=== PATIENT | male | born 1960 | race Caucasian/White ===

== ENCOUNTER 2024-10-03 18:39 | Emergency (ER) | payer OTHER ==
[~2024-10-03] VITALS: Ht 188 cm; Wt 136.4 kg
--- NOTE | 2024-10-03 20:35 | RADIOLOGY REPORT ---
EXAM: CT CT HEAD INDICATION: head pain/injury TECHNIQUE: CT of the head without intravenous contrast. Radiation Dose Information: CT Dose: CTDI volume is 65.79 mGy. Dose-length product is 1142.08 mGy*cm The dose indicators for CT are the volume Computed Tomography (CT) Dose Index (CTDIvol) and the Dose Length Product (DLP), and are measured in units of mGy and mGy-cm, respectively. These indicators are not patient dose, but values generated from the CT scanner acquisition factors. The report includes radiation exposure data for exposures received during this examination. COMPARISON: None FINDINGS: Evaluation is degraded by motion artifact. No acute territorial infarct, intracranial hemorrhage, or mass effect. There are global involutional changes with compensatory prominence of the ventricles and sulci. Patchy periventricular and subcorti robert white matter hypoattenuation is nonspecific but may be related to small vessel ischemic disease. The orbits are normal. The paranasal sinuses and mastoid air cells are clear. The osseous structures are unremarkable. IMPRESSION: 1. No acute territorial infarct, intracranial hemorrhage, or mass effect. 2. Age-related involutional changes. Chronic microvascular changes.
--- NOTE | 2024-10-03 20:51 | RADIOLOGY REPORT ---
EXAM: CT CT CERVICAL SPINE INDICATION: neck pain EXAM DATE: 10/03/2024 08:07 PM COMPARISON: None TECHNIQUE: Multiple axial CT images of the cervical spine were obtained using bone algorithm. Axial a nd coronal reformatting was done. Bone and soft tissue windows were reviewed. Radiation Dose Information: CT Dose: CTDI volume is 22.29 mGy. Dose-length product is 587.23 mGy*cm FINDINGS: No acute displaced fracture. Degenerative changes of the cervical spine characterized by mild interv ertebral disc space narrowing and endplate osteophytosis. No CT evidence of high-grade spinal stenosi s. There is mild degenerative uncovertebral and facet hypertrophy without significant neural foramina l narrowing. The paraspinal soft tissues are unremarkable. IMPRESSION: 1. No acute displaced fracture. 2. Mild degenerative changes of the cervical spine as detailed. 3. All CT scans at this medical facility are performed using dose modulation techniques as appropriat e to a performed exam including the following: Automated exposure control was utilized; adjustment of the MA and/or KV according to patient size; and use of iterative reconstruction technique.
--- NOTE | 2024-10-03 21:51 | Physician Documentation ---
History of Present Illness ~ Chief Complaint: Head Injury Stated Complaint: HEAD INJURY Time Seen by MD: 21:26 OK to notify your PCP?: No Mode of Arrival: EMS HPI approximately 5 hours ago 64-year-old male presented to the ED after having 3: Hold boxes fall on him from the top shelf of a big box store, he states that he lost consciousness and does not remember the incident and has a neck pain currently. As any blood thinners or history thereof still complains of left shoulder pain from the incident Vitals within normal limits Day of Onset: Oct 03, 2024 Tetanus within 5 years?: Yes Medication Reconciliation Allergies: Coded Allergies: aspirin (Verified Allergy, Mild, FLU LIKE SYMPTOMS, 10/03/24) oxycodone (Verified Allergy, Mild, FLU LIKE SYMPTOMS, 10/03/24) Review of Systems All Other Systems at this time: Reviewed and Negative ROS As stated above in the HPI, otherwise all systems are reviewed and negative. Physical Exam Vital Signs: Temperature: 98.5, Source: Oral, Heart Rate: 89, Respiratory Rate: 16, BP: 143/78, Pulse Oximetry: 98, Weight: 136.360 Physical Exam General: Alert, no apparent distress. HEENT: PERRL, EOMI, no injection, moist mucous membranes. Tenderness on the left side of the of the skull, no obvious hematoma, no deformity Neck: Full range of motion. tender To palpation on the left trapezius Neurologic: Oriented x4. Psychiatric: Normal mood and affect. Skin: Normal color, warm and dry. No edema, no ecchymosis. Progress Results/Orders Results/Orders Vital Signs 10/03/24 10/03/24 10/03/24 10/03/24 18:51 18:59 18:59 22:04 Temp 98.5 98.2 Pulse 94 89 80 Resp 16 16 16 18 B/P (MAP) 160/84 143/78 (99) 145/95 Pulse Ox 97 98 99 Medical Decision Making Findings See findings did not show any signs of intracranial abnormality nor did the Ct CERvical He was able to perform range of motion without much difficulty, but does report a pain at the base of his skull. This point I do not see any reason for further evaluation. I offered a Toradol shot patient declined. [facility] and will follow [facility] there for further evaluation Differential Dx:Considerations: Include: Closed head injury, Cervical spine injury, Skull facture, Fracture, Abrasion, Contusion, Foreign body, Laceration, Intoxication-alcohol, Intoxication-other drug, Substance abuse disorder, Personality disorder, Non-accidental trauma, Other Departure Disposition: 01 HOME / SELF CARE / HOMELESS Impression: Primary Impression: Concussion Additional Impression: Injury of head Discharge Instructions: Post Concussion Syndrome,Adult Additional Instructions: CT did not show any signs of acute fractures or or any brain bleeds that would be concerning. I do recommend he follow up [facility] for [facility]. May have a persistent headache in the coming days this is common for postconcussion syndrome. If you have any worsening symptoms for further return to the ED Referrals: NO PRIMARY CARE PROVIDER (PCP) Education Educated: Patient Educated regarding: diagnosis Signature Scribe Signature: df Attestation: Scribed for Pro Jackson Youth Support Worker by Pro Najera NP . 10/03/24 21:51 PRO JACKSON NP Oct 03, 2024 21:51
[2024-10-03 22:04] VITALS: BP 145/95; PULSE 80; RESP 18; TEMP 98.2; O2SAT 99
== END 2024-10-03 22:06 | disposition home or self-care (01) ==
LOC: ER 18:40
DX: S06.0XAA Concussion with loss of consciousness status unknown, initial encounter (principal); M54.2 Cervicalgia; M25.512 Pain in left shoulder; Z88.5 Allergy status to narcotic agent; Z88.6 Allergy status to analgesic agent; W22.8XXA Striking against or struck by other objects, initial encounter; Y93.89 Activity, other specified; Y92.89 Other specified places as the place of occurrence of the external cause; Y99.8 Other external cause status
CPT/HCPCS: 70450; 72125; 99284